=== PATIENT | male | born 1960 | race Hispanic/Latino ===

== ENCOUNTER 2018-11-01 12:14 | Emergency (ER) | payer MEDICARE ==
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
--- NOTE | 2018-11-01 14:59 | RAD ---
Date of service: 11/01/2018 HISTORY: Medical clearance COMPARISON: No prior. FINDINGS: LUNGS: No active pulmonary disease. PLEURA: No significant pleural effusion identified, no pneumothorax apparent. CARDIOVASCULAR: No aortic atherosclerotic calcification present. Normal cardiac size. No pulmonary vascular congestion. OSSEOUS STRUCTURES: No significant abnormalities. VISUALIZED UPPER ABDOMEN: Normal. OTHER FINDINGS: None. IMPRESSION: No active disease.
[2018-11-01 15:50] LABS: BASO # 0.1 K/uL (0.0-0.2); BASO % 0.8 % (0.0-2.0); EOS # 0.1 K/uL (0.0-0.7); EOS % 1.7 % (0.0-4.0); HEMOGLOBIN 14.1 g/dL (12.0-18.0); LYMPH % 30.9 % (20.0-40.0); MEAN CELL VOLUME 99.6 fl (80.0-94.0); MEAN CORPUSCULAR HEMOGLOBIN 33.1 pg (27.0-31.0); MEAN CORPUSCULAR HGB CONC 33.2 g/dL (33.0-37.0); MEAN PLATELET VOLUME 9.1 fl (7.2-11.7); MONO # 0.6 K/uL (0.0-0.8); MONO % 8.9 % (0.0-10.0); NEUT # 3.8 K/uL (1.8-7.0); NEUT % 57.7 % (50.0-75.0); RBC 4.26 Mil/uL (4.40-5.90); WHITE BLOOD COUNT 6.5 K/uL (4.8-10.8)
[2018-11-01 16:00] LABS: ALB/GLOB RATIO 1.1 (1.0-2.1); ALT/SGPT 82 U/L (21-72); AST/SGOT 109 U/L (17-59); BLOOD UREA NITROGEN 16 mg/dl (9-20); CALCIUM 8.7 mg/dL (8.4-10.2); GFR NON-AFRICAN AMERICAN > 60; SQUAMOUS EPITHIAL < 1 /hpf (0-5); URINE BILIRUBIN NEGATIVE (NEGATIVE); URINE BLOOD NEGATIVE (NEGATIVE); URINE CLARITY CLEAR (Clear); URINE COLOR COLORLESS (YELLOW); URINE GLUCOSE (UA) 150 mg/dL (NEGATIVE); URINE LEUKOCYTE ESTERASE NEG Leu/uL (Negative); URINE PROTEIN NEGATIVE (NEGATIVE); URINE UROBILINOGEN 0.2-1.0 mg/dL (0.2-1.0)
[2018-11-01 16:10] LABS: ACETAMINOPHEN < 10.0 ug/ml (10.0-30.0); SALICYLATE < 1.0 mg/dl
[2018-11-01 16:16] LABS: BARBITURATES, UR POSITIVE (NEGATIVE); BENZODIAZEPINES, UR NEGATIVE (NEGATIVE); OPIATES, UR POSITIVE (NEGATIVE); PHENCYCLIDINE, UR NEGATIVE (NEGATIVE)
[2018-11-01] MEDS ORDERED: Insulin Regular 100 units/ml SC STA (17:47)
--- NOTE | 2018-11-01 19:21 | ED PDOC ---
- Laboratory Results Result Diagrams: 11/01/18 15:30 11/01/18 15:30 Lab Results: Total Bilirubin 0.4 mg/dl (0.2-1.3) 11/01/18 15:30 AST 109 U/L (17-59) H 11/01/18 15:30 ALT 82 U/L (21-72) H 11/01/18 15:30 Alkaline Phosphatase 243 U/L (38-126) H 11/01/18 15:30 Total Protein 7.7 G/DL (6.3-8.2) 11/01/18 15:30 Albumin 4.0 g/dL (3.5-5.0) 11/01/18 15:30 Globulin 3.7 gm/dL (2.2-3.9) 11/01/18 15:30 Albumin/Globulin Ratio 1.1 (1.0-2.1) 11/01/18 15:30 Urine Color Colorless (YELLOW) 11/01/18 15:30 Urine Clarity Clear (Clear) 11/01/18 15:30 Urine pH 7.0 (5.0-8.0) 11/01/18 15:30 Ur Specific [place] 1.008 (1.003-1.030) 11/01/18 15:30 Urine Protein Negative mg/dL (NEGATIVE) 11/01/18 15:30 Urine Glucose (UA) 150 mg/dL (NEGATIVE) 11/01/18 15:30 Urine Ketones Negative mg/dL (NEGATIVE) 11/01/18 15:30 Urine Blood Negative (NEGATIVE) 11/01/18 15:30 Urine Nitrate Negative (NEGATIVE) 11/01/18 15:30 Urine Bilirubin Negative (NEGATIVE) 11/01/18 15:30 Urine Urobilinogen 0.2-1.0 mg/dL (0.2-1.0) 11/01/18 15:30 Ur Leukocyte Esterase Neg Analisa/uL (Negative) 11/01/18 15:30 Urine RBC (Auto) < 1 /hpf (0-3) 11/01/18 15:30 Ur Squamous Epith Cells < 1 /hpf (0-5) 11/01/18 15:30 - ECG O2 Sat by Pulse Oximetry: 96 (RA) Pulse Ox Interpretation: Normal Medical Decision Making Medical Decision Makin:00 --Patient signed out to this provider by Dr. Amy rodrigeuzing [facility] [place] screening and medical clearance. 21:43 Patient vomited in the ED. 4 mg of Zofran IV ordered. 2:25 Patient tolerating PO Cleared by Crisis with diagnosis of Substance Abuse by Dr. Devine Well appearing upon discharge Scribe Attestation: Documented by Amina Espinoza acting as a scribe for Corbin Lion MD Provider Scribe Attestation: All medical record entries made by the Scribe were at my direction and personally dictated by me. I have reviewed the chart and agree that the record accurately reflects my personal performance of the history, physical exam, medical decision making, and the department course for this patient. I have also personally directed, reviewed, and agree with the discharge instructions and disposition. Disposition - Clinical Impression Clinical Impression: Polysubstance abuse, Hyperglycemia - POA Present On Arrival: None - Disposition Referrals: [facility] [Outside] Disposition: Routine/Home Disposition Time: 02:26 Condition: STABLE Instructions: Hyperglycemia, Adult, Polysubstance Abuse (DC) Forms: [employer] ([place])
[2018-11-01 22:16] VITALS: RESP 18
[2018-11-01] MEDS ORDERED: Sodium Chloride 0.9% 1,000 ML IV STA (22:30)
[2018-11-02 02:42] VITALS: BP 129/81; PULSE 80; TEMP 98.4
--- NOTE | 2018-11-02 09:22 | CARD ---
APPROVED REPORT Date of service: 11/01/2018 EKG Measurement Heart [id number] <Conclusion> Normal sinus rhythm Normal ECG
[2018-11-05 16:16] VITALS: O2SAT 96
== END 2018-11-02 03:32 | disposition home or self-care (01) ==
LOC: H.ER 12:14
DX: F19.10 Other psychoactive substance abuse, uncomplicated (principal); E11.65 Type 2 diabetes mellitus with hyperglycemia; Z79.899 Other long term (current) drug therapy
CPT/HCPCS: 71045; 80053; 81003; 82948; 85025; 93005; 96361; 96374; 96375; 99284; G0480; J2405; J2765; J7030